=== PATIENT | female | born 1990 | race American Indian/Alaskan Native ===

== ENCOUNTER 2019-12-18 07:39 | Outpatient (CLI) | payer MEDICAID ==
[2019-12-18 08:14] VITALS: BP 139/85
[2019-12-18] MEDS ORDERED: LACTATED RINGERS 1,000 ML IV ONE (08:22)
[2019-12-18] MEDS ORDERED: ONDANSETRON 4 MG/2 ML INJ IV ONE (08:25)
[2019-12-18] MEDS ORDERED: LACTATED RINGERS 1,000 ML ONE (08:28)
[2019-12-18] MEDS ORDERED: ONDANSETRON 4 MG/2 ML INJ ONE (08:28)
[2019-12-18] MEDS ORDERED: METOCLOPRAMIDE 10 MG/2 ML INJ IV ONE (09:50)
[2019-12-18] MEDS ORDERED: LACTATED RINGERS 1,000 ML IV SCH (10:00)
== END 2019-12-18 11:28 | disposition home or self-care (01) ==
LOC: TRG 07:39 → APU 07:41 → TRG 11:28
PROVIDERS: ATTEND Obstetrics & Gynecology
DX: O21.2 Late vomiting of pregnancy (principal); O47.03 False labor before 37 completed weeks of gestation, third trimester; O99.513 Diseases of the respiratory system complicating pregnancy, third trimester; J45.909 Unspecified asthma, uncomplicated; Z3A.33 33 weeks gestation of pregnancy
CPT/HCPCS: 59025; 96361; 96374; 96375; J2405; J2765; J7120; 96360; 96365; 96372